=== PATIENT | female | born 1950 ===

== ENCOUNTER 2016-10-03 09:37 | Day surgery (SDC) | payer MEDICARE, MEDICAID ==
[~2016-10-03] VITALS: Ht 159.4 cm; Wt 88.0 kg
[2016-10-03] VITALS (8 sets, daily range): BP systolic 116–142; BP diastolic 56–82; PULSE 69–90; RESP 16–18; TEMP 98.1–98.2; O2SAT 94–100
[2016-10-03] MEDS ORDERED: SODIUM CHLORIDE 2 ML FLUSH PRN IV FLUSH (10:15)
[2016-10-03] MEDS ORDERED: SODIUM CHLOR 0.9% 1000 ML IV SCH (10:15)
[2016-10-03] MEDS ORDERED: BIOT800T2 PO (10:32)
[2016-10-03] MEDS ORDERED: TRAZ100T6 PO (10:32)
[2016-10-03] MEDS ORDERED: CANA100T PO (10:32)
[2016-10-03] MEDS ORDERED: MULT1TAB46 PO (10:32)
[2016-10-03] MEDS ORDERED: CALC600T64 PO (10:32)
[2016-10-03] MEDS ORDERED: METF500T PO (10:32)
[2016-10-03] MEDS ORDERED: OMEP20TA PO (10:32)
[2016-10-03] MEDS ORDERED: LEVO-168 PO (10:32)
[2016-10-03] MEDS ORDERED: ASPI-110 PO (10:32)
[2016-10-03] MEDS ORDERED: B-50TAB4 PO (10:32)
[2016-10-03] MEDS ORDERED: OMEG100010 PO (10:32)
[2016-10-03] MEDS ORDERED: VITA250C3 CHEW (10:32)
[2016-10-03] MEDS ORDERED: ARIP1TAB12 PO (10:32)
[2016-10-03] MEDS ORDERED: VITA500T4 PO (10:32)
[2016-10-03] MEDS ORDERED: GLUC100017 PO (10:32)
[2016-10-03] MEDS ORDERED: FLUO20CA12 PO (10:32)
[2016-10-03] MEDS ORDERED: CETI10 PO (10:32)
[2016-10-03] MEDS ORDERED: LISI10TA3 PO (10:32)
[2016-10-03] MEDS ORDERED: FOLI400T PO (10:32)
[2016-10-03] MEDS ORDERED: fentaNYL CITRATE 250 MCG/5 ML AMP ONE (11:33)
[2016-10-03] MEDS ORDERED: MIDAZOLAM HCL 2 MG/2 ML VIAL ONE (11:33)
[2016-10-03] MEDS ORDERED: LIDOCAINE 1%/EPINEPHrine 1:100,000 SOLN 20 ML VIAL ONE (11:35)
--- NOTE | 2016-10-03 12:04 | PD.RAD ---
Post CT Procedure Prog Note Pre Procedure Diagnosis: (1) Steatosis of liver (2) Elevated LFTs Post Procedure Diagnosis: (1) Elevated LFTs (2) Steatosis of liver Procedure Date: Oct 03, 2016 Supervising Radiologist: Oliver Ro Anesthesia: Conscious Sedation Plan of Activity Patient to Unit: [facility] Patient Condition: Good See PACS Report for procedural detail/treatment Biopsy Side: Right Biopsy Procedure: Liver Site: random liver biopsy in right liver. Specimen: Core Biopsy Plan to [facility] then discharge in 4 hours. Oliver Ro MD Oct 03, 2016 12:04
[2016-10-03] MEDS ORDERED: HYDROmorphone HCL 2 MG TAB PO PRN (13:00)
--- NOTE | 2016-10-03 15:01 | RADRPT ---
EXAM DATE/TIME: 10/03/2016 11:46 [place] COMPARISON: No previous studies available for comparison. INDICATIONS : Elevated liver enzymes. SEDATION TIME: 15 minutes BIOPSY SITE: liver MEDICATION(S): 1.) 2 mg midazolam (Versed) IV 2.) 100 mcg fentanyl (Sublimaze) IV DEVICE(S): 1.) 18 gauge Temno core biopsy needle 6cm MEDICAL HISTORY : Hypertension. SURGICAL HISTORY : None. ENCOUNTER: Initial ACUITY: 1 day PAIN SCORE: 0/10 LOCATION: Right lateral A total of two core specimen(s) were obtained and sent to the laboratory for pathologic evaluation. PROCEDURE: 1. CT guided liver biopsy. 2. Conscious sedation with continuous EKG and oximetry monitoring. Prior to the procedure informed consent was obtained. Any appropriate prior imaging studies were rev iewed. Using automated exposure control and adjustment of the mA and/or kV according to patient size, radiat ion dose was kept as low as reasonably achievable to obtain optimal diagnostic quality images. DICOM format image data is available electronically for review and comparison. The site was prepped in a sterile fashion. Full sterile technique was used, including cap, mask, samia rile gloves and gown and a large sterile sheet. Hand hygiene and 2% chlorhexidine and/or betadine/al cohol prep was utilized per protocol for cutaneous antisepsis. The skin and subcutaneous tissues wer e infiltrated with local anesthetic solution. With CT guidance the right lobe of the liver was localized. Biopsy was performed using the prescribed needle as above. Adequate hemostasis was obtained with compression at the puncture site. Follow-up CT scan reveals no hemorrhage or acute abnormality. There is hepatic steatosis. The patient tolerated the procedure well and there were no complications. The patient was returned to the Radiology Outpatient Unit in stable condition. CONCLUSION: Uncomplicated CT guided right lobe liver biopsy. The CT images demonstrate hepatic st eatosis. Oliver Ro MD on October 03, 2016 at 14:57 Board Certified Radiologist. This report was verified electronically.
[2016-10-03] MEDS ORDERED: SODIUM CHLORIDE 2 ML FLUSH BID IV FLUSH SCH (21:00)
== END 2016-10-03 16:08 | disposition home or self-care (01) ==
LOC: HRAD 09:37 → HRIP 09:40 → HRAD 16:08
DX: R74.8 Abnormal levels of other serum enzymes (principal); K75.81 Nonalcoholic steatohepatitis (NASH); I10 Essential (primary) hypertension
CPT/HCPCS: 47000; 77012; 88307; 88313; J2250; J3010